=== PATIENT | female | born 1985 | race Caucasian/White ===

== ENCOUNTER 2025-09-08 09:14 | Emergency (ER) | payer BC, OTHER ==
[~2025-09-08] VITALS: Ht 172.7 cm; Wt 61.2 kg
[~2025-09-08 09:14] MED LIST: PREN-49 PO
[2025-09-08] MEDS ORDERED: ONDANSETRON HCL/PF 4 MG/2 ML VIAL ONE (09:39)
[2025-09-08] MEDS: ONDANSETRON HCL/PF 4 MG/2 ML VIAL IVP ONE (09:52)
[2025-09-08] MEDS: IV NS 0.9% 1,000 ML BAG IV ONE (09:52)
[2025-09-08 09:56] LABS: PLATELET COUNT (AUTO) 273 K/uL (150-450); RED BLOOD CELL COUNT(AUTO) 4.78 MIL/uL (4.0-5.2); RED CELL DISTRIBUTION WIDTH 13.4 % (11.5-15.0); WHITE BLOOD COUNT (AUTO) 9.1 K/uL (4.3-11.0)
[2025-09-08 10:14] LABS: CALCIUM, SERUM 9.0 mg/dL (8.5-10.1); CREATININE 0.8 mg/dL (0.6-1.3); SODIUM SERUM 139.0 mmol/L (136-145); UREA NITROGEN, BLOOD 11.0 mg/dL (7-18)
[2025-09-08] MEDS ORDERED: MECL-159 PO (10:33)
[2025-09-08 11:35] VITALS: BP 112/66; TEMP 98.3; O2SAT 99
== END 2025-09-08 11:38 | disposition home or self-care (01) ==
LOC: ER 09:25
DX: R42 Dizziness and giddiness (principal); R51.9 Headache, unspecified; Z90.89 Acquired absence of other organs
CPT/HCPCS: 99285; 96374; 70450; 96361; 93005; 85025; 80048; 84703; 36415; J2405; J7030